=== PATIENT | female | born 1980 | race American Indian/Alaskan Native ===

== ENCOUNTER 2017-05-04 06:43 | Emergency (ER) | payer SELFPAY ==
[2017-05-04 07:20] VITALS: BP 97/62
[2017-05-04 09:06] LABS: Basophils # (Auto) 0.1 K/mm3 (0.0-0.1); Basophils % (Auto) 0.5 % (0.0-1.8); Eosinophils # (Auto) 0.4 K/mm3 (0.0-0.4); Eosinophils % (Auto) 3.1 % (0.0-4.3); Hematocrit 35.8 % (30.3-42.9); Hemoglobin 11.6 gm/dl (10.1-14.3); Lymphocytes # (Auto) 1.6 K/mm3 (1.2-5.4); Lymphocytes % (Auto) 12.4 % (13.4-35.0); Mean Corpuscular HGB Conc 32 % (30-34); Mean Corpuscular Hemoglobin 28 pg (28-32); Mean Corpuscular Volume 85 fl (79-97); Monocytes # (Auto) 0.8 K/mm3 (0.0-0.8); Monocytes % (Auto) 6.1 % (0.0-7.3); Platelet Count 176 K/mm3 (140-440); Red Cell Distribution Width 14.1 % (13.2-15.2)
[2017-05-04 09:25] LABS: Bacteria,Urine 1+ /HPF (Negative); Bilirubin,Urine NEG (Negative); Blood,Urine NEG (Negative); Color,Urine Yellow (Yellow); Mucus,Urine FEW /HPF; Nitrite,Urine NEG (Negative); Protein,Urine <15 mg/dL mg/dL (Negative); Urobilinogen,Urine < 2.0 mg/dL (<2.0)
== END 2017-05-04 08:44 | disposition left against medical advice (07) ==
LOC: ED 06:43
DX: R10.2 Pelvic and perineal pain (principal); N93.9 Abnormal uterine and vaginal bleeding, unspecified; Z53.21 Procedure and treatment not carried out due to patient leaving prior to being seen by health care provider
CPT/HCPCS: 36415; 81001; 84702; 85025; 86850; 86900; 86901

== ENCOUNTER 2021-08-05 11:56 | Emergency (ER) | payer SELFPAY ==
[2021-08-05] MEDS ORDERED: IPRATROPIUM 0.02% NEBU 2.5 ML IH ONE ×2 (12:25→12:52)
[2021-08-05] MEDS ORDERED: MAGNESIUM SULFATE 2 GM/50 ML BAG IV ONE (12:25)
[2021-08-05] MEDS ORDERED: ALBUTEROL 2.5 MG/3 ML NEBU IH ONE ×2 (12:25→12:52)
[2021-08-05] MEDS ORDERED: methylPREDNISolone Sod Succinate 125 MG/2 ML INJ IV ONE (12:25)
--- NOTE | 2021-08-05 12:55 | XRay Report ---
CHEST 1 VIEW INDICATION: sob, wheeze. COMPARISON: None FINDINGS: Support devices: None. Heart: Within normal limits. Lungs/Pleura: The lungs are hyperinflated but clear. No pleural abnormality or pneumothorax. Additional findings: None. IMPRESSION: Hyperinflated lungs. No acute process identified. Signer Name: Boyd Martínez Jr, MD Signed: 08/05/2021 12:51 PM Workstation Name: [id number]
--- NOTE | 2021-08-05 13:37 | Emergency Department Report ---
ED Asthma HPI - General Chief Complaint: Dyspnea/Respdistress Stated Complaint: MELY/ASTHMA Time Seen by Provider: 08/05/21 12:19 Source: patient Mode of arrival: Ambulatory Limitations: No Limitations - History of Present Illness Initial Comments: 41-year-old female the past medical history of asthma COPD with 2 L home oxygen use as needed presents to the hospital planing of wheezing and shortness of breath today. Patient is visiting from [place] and states she is out of her asthma medication. Patient complains of cough productive of sputum without fever. Denies previous history of intubations. Denies calf tenderness, leg edema, or pleuritic chest pain. - Related Data Previous Rx's Medication Instructions Recorded Last Taken Type ALBUTEROL NEB's [Proventil 0.083% 2.5 mg IH TID PRN #30 neb 08/05/21 Unknown Rx NEBS] Albuterol Sulfate [Proventil Hfa] 6.7 gm IH Q4HR PRN #1 08/05/21 Unknown Rx Prednisone [predniSONE 10 mg 10 mg PO .TAPER #1 08/05/21 Unknown Rx (6-Day Pack, 21 Tabs)] Allergies Allergy/AdvReac Type Severity Reaction Status Date / Time No Known Allergies Allergy Verified 05/04/17 07:21 ED Review of Systems ROS: Stated complaint: MELY/ASTHMA Other details as noted in HPI Comment: All other systems reviewed and negative ED Past Medical Hx - Past Medical History Hx Diabetes: Yes Hx Asthma: Yes Hx COPD: Yes - Surgical History Additional Surgical History: left tube and ovary removed - Social History Smoking Status: Never Smoker Substance Use Type: Alcohol - Medications Home Medications: Home Medications Medication Instructions Recorded Confirmed Last Taken Type ALBUTEROL NEB's [Proventil 0.083% 2.5 mg IH TID PRN #30 neb 08/05/21 Unknown Rx NEBS] Albuterol Sulfate [Proventil Hfa] 6.7 gm IH Q4HR PRN #1 08/05/21 Unknown Rx Prednisone [predniSONE 10 mg 10 mg PO .TAPER #1 08/05/21 Unknown Rx (6-Day Pack, 21 Tabs)] ED Physical Exam - General Limitations: No Limitations - Other Other exam information: General: Moderate distress Head: Atraumatic Eyes: normal appearance ENT: Moist mucous membranes Neck: Normal appearance, no midline tenderness Chest: Tachypnea, poor air movement, wheezing, accessory muscle CV: Regular rate and rhythm Abdomen: Soft, normal bowel sounds, nontender, nondistended, no rebound or guarding Back: Normal inspection Extremity: Normal inspection, full range of motion, no calf tenderness or leg edema Neuro: Alert O x 3, no facial asymmetry, speech clear, no gross motor sensory deficit Psych: Appropriate behavior Skin: No rash ED Course Vital Signs 08/05/21 08/05/21 08/05/21 11:57 12:31 12:46 Temperature 98.7 F Pulse Rate 129 H Pulse Rate [ Anterior Bilateral] Respiratory 30 H Rate Respiratory Rate [Anterior Bilateral] Blood Pressure 101/66 Blood Pressure 116/74 [Right] O2 Sat by Pulse 100 99 98 Oximetry 08/05/21 08/05/21 08/05/21 13:00 13:06 13:16 Temperature Pulse Rate Pulse Rate [ 112 H Anterior Bilateral] Respiratory Rate Respiratory 20 Rate [Anterior Bilateral] Blood Pressure 129/75 131/77 Blood Pressure [Right] O2 Sat by Pulse 100 100 Oximetry 08/05/21 08/05/21 13:30 14:10 Temperature Pulse Rate Pulse Rate [ 102 H Anterior Bilateral] Respiratory Rate Respiratory 18 Rate [Anterior Bilateral] Blood Pressure 102/49 Blood Pressure [Right] O2 Sat by Pulse 100 Oximetry ED Medical Decision Making - Radiology Data Radiology results: report reviewed CHEST 1 VIEW INDICATION: sob, wheeze. COMPARISON: None FINDINGS: Support devices: None. Heart: Within normal limits. Lungs/Pleura: The lungs are hyperinflated but clear. No pleural abnormality or pneumothorax. Additional findings: None. IMPRESSION: Hyperinflated lungs. No acute process identified. - Medical Decision Making 41-year-old asthmatic with history of COPD on home oxygen use presents to the hospital with wheezing and shortness of breath without hypoxia. Patient received bronchodilators in the ED, steroids, and magnesium with improvement in symptoms. Patient requesting discharge without further ED treatment. Patient states she is visiting from [place] and cannot afford the prescriptions however, I have written for asthma related medications and encouraged her to fill them. She plans to fly back to [place] tomorrow. Critical Care Time: Yes Critical care time in (mins) excluding proc time.: 35 Critical care attestation.: If time is entered above; I have spent that time in minutes in the direct care of this critically ill patient, excluding procedure time. Critical Care Time: 35 Minutes of critical care time excluding procedures were used in the care of the patient. I came immediately to the bedside upon patient's arrival. I I discussed treatment plan with the nursing team members. I reviewed electronic record. Patient required multiple interventions and reassessments. ED Disposition Clinical Impression: Acute asthma exacerbation, COPD exacerbation Disposition: 01 HOME / SELF CARE / HOMELESS Is pt being admited?: No Does the pt Need Aspirin: No Condition: Stable Instructions: Chronic Obstructive Pulmonary Disease (ED), Asthma, Adult, Chronic Obstructive Pulmonary Disease Additional Instructions: Take the medication as prescribed. Follow-up with your doctor or doctor/clinic provided. Return if symptoms worsen as indicated by your discharge instructions. Prescriptions: Prednisone [predniSONE 10 mg (6-Day Pack, 21 Tabs)] 10 mg PO .TAPER #1 ALBUTEROL NEB's [Proventil 0.083% NEBS] 2.5 mg IH TID PRN #30 neb PRN Reason: Wheezing Albuterol Sulfate [Proventil Hfa] 6.7 gm IH Q4HR PRN #1 PRN Reason: Wheezing Referrals: EUFEMIA FINN MD [Staff Physician] - 3-5 Days [facility] [Provider Group] - 3-5 Days Time of Disposition: 14:46
[2021-08-05 15:10] VITALS: BP 148/79
== END 2021-08-05 15:10 | disposition home or self-care (01) ==
LOC: ED 11:56
DX: J44.1 Chronic obstructive pulmonary disease with (acute) exacerbation (principal); E11.9 Type 2 diabetes mellitus without complications; Z72.89 Other problems related to lifestyle; Z79.899 Other long term (current) drug therapy
CPT/HCPCS: 71045; 94640; 96365; 96375; 99283; J2930; J3475; 94644